=== PATIENT | female | born 1945 | race African-American/Black ===

== ENCOUNTER → 2017-05-31 | Outpatient (CLI) | payer MEDICARE, BC ==
[~2017-05-31] MED LIST: ACID REFLUX; ADULT LOW DOSE81 MG PO; ARAVA20 MG PO; BENTYL20 MG PO; BETAGAN 2 ML2 ML OP; BUPROPION HCL100 MG PO; BUPROPION HCL75 MG PO; CALCIUM 600 PLU1 TAB PO; CALCIUM CARBON600 MG PO; CALCIUM CARBONA1 TAB PO; CARVEDILOL3.125 MG PO; CELLCEPT250 MG PO; CIPRO 500MG TA500 MG PO; COLESTIPOL1 GM PO; COSOPT 2%-0.5%10 ML OP; CYCLOBENZAPRINE5 MG PO; DEPAKOTE 500MG500 MG PO; DEPAKOTE ER500 MG PO; DIAZEPAM5 MG PO; DIGOXIN0.125 MG PO; DILAUDID2 MG PO; DONEPEZIL 10MG10 MG PO; HCTZ/LISINOPRIL1 TAB PO; HYDROCHLOROTHIA25 M1 PO; HYDROCODONE 7.51 TAB PO; HYGROTON GENERI25 MG PO; IMURAN50 MG PO; KLOR-CON M2020 MEQ PO; LASIX; LEFLUNOMIDE20 MG PO; LOMOTIL 2.5MG.2.5 MG PO; LORATADINE 10MG10 M1 PO; LORTAB 5/500 501 TAB PO; MACROBID100 M3 PO; MAG-OX 400MG T400 MG PO; MED FOR TREMORS; MEDROL 4MG. DOSE4 MG PO; METRONIDAZOLE500 MG PO; MONODOX100 MG PO; MYSOLINE50 MG OR; Meclizine25 MG PO; OMEPRAZOLE20 MG PO; OXYBUTYNIN5 MG PO; PERCOCET 325 MG1 TA3 PO; POTASSIUM CHLO20 ME2 PO; PREDNICOT20 MG PO; PREDNISONE 2.52.5 MG PO; PREDNISONE 5MG.5 MG PO; PREDNISONE2.5 MG PO; PREMPRO 0.45 MG1 TAB PO; PROPRANOLOL HCL20 MG PO; PROTONIX 40MG T40 MG PO; PROTONIX40 MG PO; PYRIDIUM200 M2 PO; QUALITY CHOICE PO; SIMVASTATIN20 MG PO; TESSALON PERLE100 MG PO; TRAMADOL 50MG T50 MG PO; VICODIN 5/500 T1 TAB PO; WELLBUTRIN 150150 MG PO; WELLBUTRIN SR150 MG PO; XALATAN 0.2.5 ML/BOT OP; ZOFRAN4 MG PO; ZOLPIDEM 10MG T10 MG PO; [UNRECOGNIZED DRUG - OTHER] OP; [UNRECOGNIZED DRUG - OTHER] PO; [UNRECOGNIZED DRUG - REMARK]
[2017-05-31 15:32] LABS: HEMOGLOBIN 11.6 g/dL (12.2-16.2)
[2017-05-31 15:34] LABS: LYMPH % 32.3 % (10-50.0)
[2017-05-31 15:36] LABS: LYMPH # 1.3 K/mm3 (0.7-4.5)
[2017-05-31 15:38] LABS: URINE BILIRUBIN - DIPSTICK NEGATIVE (NEG); URINE BLOOD NEGATIVE (NEG)
[2017-05-31 17:17] LABS: BUN 11 mg/dL (7-18)
[2017-05-31 18:06] LABS: GFR (ESTIMATED) 55 ML/MIN (59-)
[2017-06-02 19:44] LABS: MISCELLANEOUS TEST HCV ANTIB.VERIFICAT.
== END ==
LOC: LAB 14:38
PROVIDERS: Internal Medicine Rheumatology
DX: M32.9 Systemic lupus erythematosus, unspecified (principal); R53.83 Other fatigue; Z79.899 Other long term (current) drug therapy

== ENCOUNTER 2017-06-26 11:03 | Day surgery (SDC) | payer MEDICARE, BC ==
[~2017-06-26] VITALS: Ht 162.6 cm; Wt 72.6 kg
--- NOTE | 2017-06-26 13:21 | Operative Note ---
Upper GI Endoscopy Procedure date: 06/26/17 Date of : 49 Procedure:Upper GI Endoscopy The esophagogastric duodenoscopy with cold biopsies and TTS balloon dilation Indications: Mrs. Reilly is a 71-year-old female who has had dyspepsia with esophageal spasm in the past. She has been developing more fullness, food regurgitation, reflux and dysphagia. She had an EGD with me in September 2016 that showed linear gastritis and small hiatal hernia. The patient is here for repeat evaluation as well as screening colonoscopy. She has had pancreatitis in the past. The patient does take CellCept for lupus. Performing Provider: Zakiya Cartagena MD Referring Provider: Sterling Penn M.D. Sedation: MAC sedation Procedure: Prior to the procedure, a history and physical exam was performed, and patients medications and allergies were reviewed. The risks and benefits of the procedure and the sedation options and risks were discussed with the patient. All questions were answered and informed consent was obtained. The patient was brought to the procedure room. Patient identification and proposed procedure were verified by the physician and the nurse. The patient was placed in a left lateral decubitus position and the scope was passed under direct vision. Throughout the procedure, the patient's blood pressure, pulse, and oxygen saturations were monitored continuously. The endoscope was introduced through the mouth, and advanced to the second part of duodenum. The upper GI endoscopy was accomplished without difficulty. The patient tolerated the procedure well. Findings: The scope was passed directly into the upper esophagus and advanced to the third portion of the duodenum. The post bulbar duodenum and duodenal bulb were normal with normal mucosa and conniventes. The scope was withdrawn through a normal duodenal bulb and pylorus into the stomach. There was linear erythema of the antrum and body of the stomach consistent with linear reactive gastritis. The remainder of the antrum, body and fundus of the stomach were grossly normal. Upon retroflexion there was a small 1-2 cm hiatal hernia. 2 biopsies were taken in the antrum and along the lesser curvature for histology. The scope was then withdrawn into the esophagus. There appeared to be a small island of Hancock's that was biopsied. There were tertiary contractions and evidence of moderate esophageal dysmotility. The entire esophagus was dilated to 60 Singaporean/20 mm with a TTS hydrostatic balloon. There was fracturing of a proximal esophageal web. There was some increased cricopharyngeal resting tone. Immediate complications: None EBL (ml): 0 Impression: 1. Nonerosive gastroesophageal reflux disease with mild esophageal dysmotility and cricopharyngeal spasm status post dilation to 20 mm 2. 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 Small sliding hiatal hernia 4. Bile reflux with mild linear reactive gastritis Recommendations: I am going to recommend promotility therapy and treatment for visceral sensitivity and accommodation. I will proceed with screening colonoscopy. I will follow-up the biopsies. at 1321
--- NOTE | 2017-06-26 13:38 | Operative Note ---
Colonoscopy ([facility]) Procedure date: 06/26/17 Date of : 49 Procedure:Colonoscopy Colonoscopy Indications: Mrs. Reilly is a 71-year-old female who is here for screening colonoscopy. I believe that she had a colonoscopy with Dr. Marybeth Feliz within the last 3-5 years. The patient has a history of dyspepsia. She has had some nausea and fullness. The patient had a normal ultrasound of the gallbladder and HIDA scan. The patient reports no rectal bleeding or family history of colon cancer. Performing Provider: Zakiya Cartagena MD Referrring Provider: Sterling Penn M.D. Sedation: MAC sedation Procedure: Prior to the procedure, a history and physical exam was performed, and patient medications and allergies were reviewed. The risks and benefits of the procedure and the sedation options and risks were discussed with the patient. All questions were answered and informed consent was obtained. Patient identification and proposed procedure were verified by the physician and the nurse. The patient was placed in a left lateral decubitus position. Throughout the procedure, the patient's blood pressure, pulse, and oxygen saturations were monitored continuously. Findings: On digital rectal examination there was normal rectal tone. There were no external hemorrhoids. The colonoscope was introduced through the anal canal to the rectum and advanced to the cecum. The ileocecal valve and appendiceal orifice were identified. The scope was advanced a short distance into the ileum which appeared grossly normal. The scope was then withdrawn into the colon. The cecum, ascending, transverse, descending, sigmoid and rectum were grossly normal. There were no mucosal abnormalities identified. Upon retroflexion within the rectum there were grade 1 internal hemorrhoids. Impressions: 1. Normal colonoscopy with intubation of the terminal ileum Recommendations: The patient will not require screening/surveillance colonoscopy again for 10 years by ACS guidelines. I would encourage fiber supplementation on a long-term daily maintenance basis. Complications: None EBL (ml): 0 at [id number]
[2017-06-26 14:57] VITALS: BP 156/78
== END 2017-06-26 14:35 | disposition home or self-care (01) ==
LOC: SDC 11:03
PROVIDERS: Internal Medicine Gastroenterology
PROC: 0DB58ZX Excision of Esophagus, Via Natural or Artificial Opening Endoscopic, Diagnostic (ICD-10-PCS; 2017-06-26)
PROC: 0DB78ZX Excision of Stomach, Pylorus, Via Natural or Artificial Opening Endoscopic, Diagnostic (ICD-10-PCS; 2017-06-26)
PROC: 0DB68ZX Excision of Stomach, Via Natural or Artificial Opening Endoscopic, Diagnostic (ICD-10-PCS; 2017-06-26)
PROC: 0D758ZZ Dilation of Esophagus, Via Natural or Artificial Opening Endoscopic (ICD-10-PCS; 2017-06-26)
PROC: 0DJD8ZZ Inspection of Lower Intestinal Tract, Via Natural or Artificial Opening Endoscopic (ICD-10-PCS; principal; 2017-06-26 12:00)
DX: Z12.11 Encounter for screening for malignant neoplasm of colon (principal); K64.0 First degree hemorrhoids; K21.9 Gastro-esophageal reflux disease without esophagitis; K44.9 Diaphragmatic hernia without obstruction or gangrene; I11.0 Hypertensive heart disease with heart failure; I50.32 Chronic diastolic (congestive) heart failure; I25.10 Atherosclerotic heart disease of native coronary artery without angina pectoris; L93.0 Discoid lupus erythematosus; K22.4 Dyskinesia of esophagus; E78.5 Hyperlipidemia, unspecified; J39.2 Other diseases of pharynx; K29.60 Other gastritis without bleeding; R13.10 Dysphagia, unspecified; Z79.82 Long term (current) use of aspirin; Z79.51 Long term (current) use of inhaled steroids; Z79.899 Other long term (current) drug therapy; Z88.8 Allergy status to other drugs, medicaments and biological substances; Z87.891 Personal history of nicotine dependence; Z81.1 Family history of alcohol abuse and dependence; Z82.49 Family history of ischemic heart disease and other diseases of the circulatory system; Z82.61 Family history of arthritis; I73.9 Peripheral vascular disease, unspecified
CPT/HCPCS: 43239; 43249; G0121; C1726

== ENCOUNTER 2017-07-15 11:40 | Observation (INO) | payer MEDICARE, BC ==
[~2017-07-15] VITALS: Ht 165.1 cm; Wt 73.2 kg
[~2017-07-15 11:40] MED LIST changes: -CARVEDILOL3.125 MG PO; +CARVEDILOL6.25 MG PO
[2017-07-15 11:49] VITALS: BP 148/84
--- NOTE | 2017-07-15 12:16 | Emergency Room Report ---
History of Present Illness Time Seen by 1206 Presenting Problem in Triage Pt arrived:Walked Presenting Problem:PT C/O ABD PAIN WITH N/V. 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 N Clinical Suspician of Infection? N Mental Status: 1 - Regular (Normal Baseline) Sepsis Risk:Low Sepsis Risk Have you (or family members/close friends) recently traveled outside the [place]? N If Yes, where/when: Have you had exposure to infectious disease within the past month? N TB? Other? Specify: 71 years old -Lebanese female with multiple medical problems including recurrent pancreatitis. She underwent esophageal dilation 3 weeks ago and started on Reglan. She was nauseous 5 days ago with abdominal pain that resolved. The pain recurred since yesterday sharp upper abdominal with nausea. There is no vomiting or diarrhea no fever no chills. The pain progressively gotten worse and she was seen by her primary care physician career services assistant the ED this morning. She has no hematemesis no coffee-ground Marybeth's is no bleeding per rectum or melanotic stool. She denies having chest pain shortness of breath or palpitations. Source patient, RN notes reviewed, family Exam Limitations no limitations ALLERGIES Coded Allergies: prochlorperazine (Intermediate, HALLUCINATIONS 06/26/17) ibuprofen (PT HAS RENAL FAILURE 06/26/17) oxycodone (HALLUCINATIONS 06/26/17) Home Medications Reported Medications Primidone (Avpak Primidone) 250 MG PO BID Simvastatin 20 MG PO DAILY #30 Mycophenolate Mofetil (Cellcept) 500 MG PO QHS Mycophenolate Mofetil (Cellcept) 750 MG PO DAILY Latanoprost (Xalatan 0.005% Opth Soln) 1 DROP OP QHS DONEPEZIL HCL (Donepezil 10MG Tablet) 10 MG PO QHS POTASSIUM CHL (Potassium Chloride) 20 MEQ PO BID OXYBUTYNIN CHLORIDE (Oxybutynin 5MG Tab) 5 MG PO BID CALCIUM CARBONATE/VITAMIN D3 (Calcium 600 + Vit D3 Tablet) 1 TAB PO DAILY Bupropion Hcl (Bupropion 100MG) 100 MG PO BID Loratadine (Loratadine 10MG Tablet) 10 MG PO DAILY Pantoprazole Sodium (Protonix) 40 MG PO DAILY DORZOLAMIDE HCL/TIMOLOL (Dorzolamide-Timolol Eye Drops) 1 DROP OP BID Leflunomide 20 MG PO DAILY Carvedilol (Carvedilol 3.125MG) 3.125 MG PO BID Chlorthalidone (Chlorthalidone 25MG Tab) 25 MG PO DAILY Aspirin (Adult Low Dose Aspirin EC) 81 MG PO DAILY History Medical History General CAD? Yes Angina: No MS: No Hypertension? Yes Hyperlipidemia? Yes CHF? No DVT? Yes PE? No COPD? No Asthma? No Anemia? No GERD? Yes Gastric ulcers? No GI Bleed? No Hernia? No Thyroid Problems? Yes Hypothyroidism? No CVA? No Seizures? No Diabetes? No Insulin Dependent: No Insulin Pump: No Home FSBS? No Renal Insuffiency? Yes End Stage Renal Disease? No UTI? No Stones? No BPH? No GB Disease: No Nephritic Syndrome? No Asplenia? No Hepatitis? No Sickle Cell Disease? No Arthritis? Yes Migraines? Yes Cataracts? Yes Glaucoma? Yes MRSA? No HIV? No TB? No Anxiety? Yes Depression? Yes Cancer? No More? Yes Additional hx: PANCREATITIS Immunization Hx DT/Tetanus Unknown Flu 2015-FSN Pneumonia Never Had Surgical Hx Previous Surgery?Y BACK SURGERY X2 ROTATOR CUFF REPAIR X2 TUBAL LIGATION BIOPSY-UTERINE BREASTS BIOPSIES HEART CATH COLONOSCOPY 06/07/2012 LEFT LEG LASER SURGERY BACK SURGERY UPPER GI Family History Family Hx CAD Yes Hypertension Yes Social History Smoking Hx Smoker: Never Smoker Tobacco: No Alcohol Alcohol: No Review of Systems All Other Systems Reviewed and Negative Constitutional no symptoms reported Eyes no symptoms reported ENT no symptoms reported. Respiratory no symptoms reported Cardiovascular no symptoms reported Gastrointestinal see HPI, abdominal pain, nausea Genitourinary no symptoms reported. Musculoskeletal no symptoms reported Skin no symptoms reported Psychiatric/Neurological no symptoms reported Physical Exam Vital Signs Vital Signs Date Time Temp Pulse Resp B/P Pulse O2 O2 Flow FiO2 Ox Delivery Rate 07/15 1625 16 07/15 1519 16 07/15 1453 98.4 65 16 161/80 98 07/15 1318 70 16 181/84 98 07/15 1149 98.4 71 16 148/84 98 - WBC >12,000 or <4,000 or 10% bands? 2 or more SIRS Criteria Met? B/P:148/84 MAP:105 Creatinine >2.0? UA output<0.5ml/kg/hr for 2 hrs? Platelet count >100,000? Lactate >2.0mmol/1? INR >1.2 or PTT > than 60 sec? Evidence of Organ Dysfunction? Provider documented clinical suspician of infection? N Sepsis Criteria Count: 0 Sepsis Risk: Low Sepsis Risk General Appearance normal appearance, WD/WN Eye Exam - bilateral eye normal exam, bilateral eye PERRL, bilateral eye EOMI Ear, Nose, Throat hearing grossly normal, normal ENT inspection Neck normal inspection, non-tender, supple, full range of motion Respiratory Status Yes: trachea midline, chest symmetrical, non tender chest. No: respiratory distress. Lung Sounds bilateral: normal breath sounds, lungs clear. Cardiovascular normal exam, regular rate/rhythm, no peripheral edema, no gallop, no JVD, no murmur, no rub, normal peripheral pulses Peripheral Pulses Pulses normal Yes Gastrointestinal no organomegaly, tenderness, OBESE ABDOMEN SOFT WITH EPIGASTRIC TENDERNESS, NO CROSS OR REBOUND TENDERNESS, HYPERACTIVE BOWEL SOUND. nO PULSATING MASSES STRONG BILATERAL FEMORAL PULSES. Back normal inspection, no CVA tenderness, no vertebral tenderness Extremities non-tender, normal range of motion, normal inspection Neurologic alert, christian science healer II-XII nml as tested, normal exam, oriented x 3 Reflexes Reflexes normal Yes Mental status normal mood/affect Skin intact, normal color, warm/dry Lymphatic no adenopathy Medical Decision Making LABS/Meds/Orders Pt receiving controlled substance in ED? No Results/Orders Laboratory Tests 07/15/17 1325: Triglycerides Pending 07/15/17 1325: Sodium 136, Potassium 4.0, Chloride 101, Carbon Dioxide 25, BUN 14, Creatinine 1.1 H, Estimated Creat Clear 57, Estimated GFR (MDRD) 49 L, Glucose 106, Calcium 10.0, Total Bilirubin 0.2, AST 17, ALT 16, Alkaline Phosphatase 145 H, Troponin I < 0.02, Total Protein 8.1, Albumin 4.1, Globulin 4.0 H, Albumin/ Globulin Ratio 1.0 L, Amylase 122 H, Lipase 161 07/15/17 1315: WBC 5.6, RBC 5.25, Hgb 13.3, Hct 46.4, MCV 88.5, RDW 13.9, Plt Count 193, MPV 8.5, Gran % 72.0, Gran # 4.0, Lymphocytes % 19.5, Monocytes % 5.0, Eosinophils % 2.6, Basophils % 0.9, Lymphocytes # 1.1, Monocytes # 0.3, Eosinophils # 0.2, Basophils # 0.1, PUBS MCHC 28.7 L, MCH 25.4 L Current Medication Orders Sig/Silverio Start time Last Medication Dose Route Stop Time Status Admin Morphine Sulfate 2 MG ONCE ONE 07/15 1630 DCr 07/15 IV 07/15 1631 1625 Morphine Sulfate 0 .STK-MED ONE 07/15 162 DCr .ROUTE Morphine Sulfate 2 MG ONCE ONE 07/15 1530 DCr 07/15 IV 07/15 1531 1519 Morphine Sulfate 0 .STK-MED ONE 07/15 1521 DCr .ROUTE Diatrizoate Meglum/ 30 ML ONCE ONE 07/15 1515 UNV 07/15 Diatrizoate Sod PO 07/15 1516 1507 Sodium Chloride 10 ML ONCE ONE 07/15 1515 UNV 07/15 IV 07/15 1516 1507 Iopamidol 24 ML ONCE ONE 07/15 1500 UNV IV 07/15 1501 Diatrizoate Meglum/ 30 ML ONCE ONE 07/15 1230 DC 07/15 Diatrizoate Sod PO 07/15 1231 1317 Diatrizoate Meglum/ 0 .STK-MED ONE 07/15 1230 DC Diatrizoate Sod .ROUTE Famotidine 20 MG ONCE ONE 07/15 1230 CAN IV 07/15 1231 Morphine Sulfate 2 MG [id number] PRN 07/15 1230 CANr IV Sodium Chloride 8 ML ONCE ONE 07/15 1230 CAN IV 07/15 1231 Sodium Chloride 10 ML PRN PRN 07/15 1200 AC IV 07/16 1157 Orders Procedure Date/time Status DIET-NOTHING BY MOUTH 07/15 D Active ELECTROCARDIOGRAM REQUEST 07/15 1617 Active TRIGYLCERIDES 07/15 1617 Active 12 LEAD EKG-TRE (INITIAL) 07/[address] ABD & PELVIS W/O CONTRAST 07/[address] ABD/PELVIS REQ 07/15 1219 Complete IV SALINE LOCK 07/15 1157 Active TROPONIN I 07/15 1157 Complete LIPASE 07/15 1157 Complete CBC WITH AUTO DIFF 07/15 1157 Complete CHEM 12 PROFILE 07/15 1157 Complete AMYLASE 07/15 1157 Complete CM/EKG 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 EKG rate, NSR, rhythm Comments Normal sinus rhythm 75/m biphasic P wave upslope T ST segment in V2 T-wave inversions in V4 5 and 6 XRAY/CT/US XRAY/CT/US CT abdomen, pelvis CT interpretation by discussed w/radiologist Time results known: 1621 CT Results normal/NAD Departure Departure Time of Disposition 1621 Disposition Still a Patient Clinical Impression Primary Impression: Pancreatitis, acute Secondary Impressions: CAD (coronary artery disease), Esophagitis Condition STABLE Referrals Fili WONG,A.C. (Family) Additional Instructions I discussed with Dr cardenas and gabbi to admit for IVF , protonix drip , lactic acid, and no more morphine. Discharge Counseling Counseled pt/family regarding diagnosis, medications/RX, home care, follow up needs ED Critical Care Critical Care No If Critical Care minutes are documented, the time involved in the performance of seperately reportable procedures was not counted toward critical care time documented. I directly delivered medical care to this critically ill and/or injured patient. Timely evaluation and treatment was necessary to address the significant organ system(s) dysfunction present in this patient. at 1641
--- OUTSIDE RECORDS SUMMARY | 2017-07-15 12:20 | External Medical Summary Rpt | CCD ---
Author Author [facility] Organization [facility] Address Unknown Phone Unavailable Purpose Continuity of Care Document - through 2016
--- OUTSIDE RECORDS SUMMARY | 2017-07-15 12:20 | External Medical Summary Rpt | CCD ---
Demographics Preferred Language Lithuanian Marital Status Unknown Hinduism Affiliation Unknown Race Unknown Ethnic Group Unknown Author Author , TALIA MELGAR Address Unknown Phone Immunization No patient found.
--- OUTSIDE RECORDS SUMMARY | 2017-07-15 12:20 | External Medical Summary Rpt | CCD ---
Author Author , TALIA MELGAR Address Unknown Phone [email or web address] Care Team Providers Care Systems Specialist Name Role Phone Shashank Murdock MD, Unavailable Unavailable Shashank Murdock MD Purpose Continuity of Care Document - 07-28-2013 through 2016 Problems Code Diagnosis DOS Provider Status 780.60 780.60 [facility] D69.6 THROMBOCYTO PENIA, UNSPECIFIED E16.2 HYPOGLYCEMI A, UNSPECIFIED E933.1 E933.1 ADV [facility] TIC K29.70 GASTRITIS, UNSPECIFIED , WITHOUT BLEEDING K52.9 NONINFECTIV E GASTROENTER ITIS AND COLITIS, UNSPECIFIED K85.90 ACUTE PANCREATITI S WITHOUT NECROSIS OR INFECTION, UNSP M32.9 SYSTEMIC LUPUS ERYTHEMATOS US, UNSPECIFIED M48.06 SPINAL STENOSIS, LUMBAR REGION M53.3 SACROCOCCYG EAL DISORDERS, NOT ELSEWHERE CLASSIFIED M54.17 RADICULOPAT HY, LUMBOSACRAL REGION M54.5 LOW BACK PAIN N18.3 CHRONIC KIDNEY DISEASE, STAGE 3 (MODERATE) N30.90 CYSTITIS, UNSPECIFIED WITHOUT HEMATURIA R00.1 BRADYCARDIA , UNSPECIFIED R07.9 CHEST PAIN, UNSPECIFIED R10.9 UNSPECIFIED ABDOMINAL PAIN R53.83 OTHER FATIGUE R55 SYNCOPE AND COLLAPSE R92.8 OTH ABN AND INCONCLUSIV E FINDINGS ON DX IMAGING OF BREAST Allergies, Adverse Reactions, Alerts Type Drug Allergy Adverse Reaction to Substance Substance Reaction Severity Ibuprofen PT HAS RENAL FAILURE Unknown Prochlorperazine HALLUCINATIONS Intermediate Oxycodone NA-HALLUCINATIONS Unknown Medications Na ND Rx Da Fi Fi Am Da Di Ph RX Ph St me C No te ll ll ou ys ag ar # ys at rm s nt no ma ic us Or Da si cy ia de te s n re d PA 11 0 No TI -2 EN 6- Lo T' 20 ng S 13 er OW N Ac HO ti ME ve ME DS PA 11 1 No TI -2 EN 5- Lo T' 20 ng S 13 er OW N Ac HO ti ME ve ME DS LE 25 11 0 No VO 02 -2 FL 10 4- Lo OX 13 20 ng AC 28 13 er IN 3 Ac 75 ti 0 ve MG /1 50 ML -D 5W SO 00 11 0 No DI 40 -2 UM 97 4- Lo 98 20 ng CH 30 13 er LO 9 RI Ac DE ti ve 0. 9% SO CORNELIA TI ON Sa 63 11 1 No li 80 -2 ne 70 4- Lo 10 20 ng Fl 07 13 er us 5 h Ac 10 ti ML ve Sy ri ng e Sa 63 11 1 No li 80 -2 ne 70 4- Lo 10 20 ng Fl 07 13 er us 5 h Ac 10 ti ML ve Sy ri ng e TY 50 11 0 No LE 58 -2 NO 00 4- Lo L 45 20 ng EX 10 13 er -S 3 TR Ac ti 50 ve [address] ET ON 00 11 2 No DA 64 -2 NS 16 4- Lo ET 08 20 ng RO 02 13 er N 5 HC Ac L ti 4 ve MG /2 ML AL LI 00 11 0 No DO 40 -2 CA 94 4- Lo IN 27 20 ng E 60 13 er HC 1 L Ac 1% ti ve AL TU 00 11 2 No MS 13 -2 50 4- Lo TA 07 20 ng BL 02 13 er ET 7 Ac CH ti EW ve AB LE PA 11 2 No TI -2 EN 4- Lo T' 20 ng S 13 er OW N Ac HO ti ME ve ME DS LO 00 11 2 No VE 07 -2 NO 50 4- Lo X 62 20 ng 40 04 13 er 1 MG Ac /0 ti .4 ve ML SY RI NG E LA 24 11 1 No TA 20 -2 NO 80 4- Lo NM 46 20 ng OS 32 13 er T 5 0. Ac 00 ti 5% ve EY E DR STEWARD S Vital Signs 07-30-2013 16:15 Name Value Interpretat Reference Comment ion Range Body 98.6 [degF] Temperature BP 52 mm[Hg] Diastolic BP Systolic 94 mm[Hg] Heart 92 /min Rate/Pulse Respiratory 18 /min Rate 07-30-2013 08:00 Name Value Interpretat Reference Comment ion Range O2% 99 % 07-28-2013 15:46 Name Value Interpretat Reference Comment ion Range Height 162.56 cm Weight 59.194 kg Measured 07-28-2013 03:22 Name Value Interpretat Reference Comment ion Range Body 100.2 Temperature [degF] BP 67 mm[Hg] Diastolic BP Systolic 132 mm[Hg] Heart 110 /min Rate/Pulse O2% 95 % Respiratory 16 /min Rate Weight 0 [oz_av] Measured Results Labs Lab Lab Date Result Refere Interp Status Commen Order Detail nces retati t Range on CBC with AUTO DIFF (07-30-2013 07:15) WBC # 11-26-2 5.4 4.8-10. complet Bld 013 K/MM3 8 ed Auto 07:15 RBC # 11-26-2 4.77 4.2-5.4 complet Bld 013 M/mm3 ed Auto 07:15 Hgb --2 12.8 12.2-16 complet Bld-mCn 013 g/dL .2 ed c 07:15 Hct Fr 07-30-2 39.2 % 37.0-47 complet Bld 013 .0 ed 07:15 MCV RBC 11-2 82.3 fl 82.2-97 complet 013 .8 ed 07:15 MCH RBC 07-30-2 26.9 pg 27-31.2 complet Qn 013 ed Auto 07:15 MEAN 11-26-2 32.8 31.8-35 complet CORPUSC 013 g/dl .4 ed ULAR 07:15 HGB CONC RDW RBC -26-2 15.8 % 11.5-17 complet Auto 013 .5 ed 07:15 Platele -26-2 138 142-424 complet t Bld 013 K/mm3 ed Ql 07:15 Manual MEAN 07-30-2 8.4 fl 7.4-10. complet PLATELE 013 4 ed T 07:15 VOLUME Granulo --2 66.2 % 37.0-80 complet cytes 013 .0 ed Fr Bld 07:15 Auto LYMPH % 11-26-2 27.6 % 10-50.0 complet 013 ed 07:15 Monocyt 11-26-2 3.1 % 1.7-9.3 complet es Fr 013 ed Bld 07:15 Auto Eosinop -26-2 2.9 % 0.1-12. complet hil Fr 013 0 ed Bld 07:15 Auto Basophi 11-26-2 0.3 % 0.1-2.0 complet ls Fr 013 ed Bld 07:15 Auto Granulo 07-30-2 3.6 1.8-7.8 complet cytes # 013 K/mm3 ed Bld 07:15 Auto Lymphoc 07-30-2 1.5 0.7-4.5 complet ytes Fr 013 K/mm3 ed Bld 07:15 Auto Monocyt 07-30-2 0.2 0.1-1.0 complet es # 013 K/mm3 ed Bld 07:15 Auto Eosinop 07-30-2 0.2 0.0-0.4 complet hil # 013 K/mm3 ed Bld 07:15 Auto Basophi 07-30-2 0.0 0-0.2 complet ls # 013 K/MM3 ed Bld 07:15 Auto BASIC METABOLIC PANEL (07-29-2013 06:55) Glucose 61 74-106 complet 013 mg/dL ed Bld-mCn 06:55 c BUN 15 7-18 complet Bld-mCn 013 mg/dL ed c 06:55 Creat 2 1.2 0.6-1.0 complet SerPl-m 013 mg/dL ed Cnc 06:55 Creat 44 50-200 complet Cl 013 ML/MIN ed predict 06:55 ed SerPl C-G-vRa te GFR/BSA 45 59- complet .pred 013 ML/MIN ed SerPl 06:55 Schwart z-vRate Sodium 139 136-145 complet SerPl-s 013 mmoL/L ed Cnc 06:55 Potassi 3.8 3.5-5.1 complet um 013 mmoL/L ed SerPl-s 06:55 Cnc Chlorid 107 98-107 complet e 013 mmoL/L ed SerPl-s 06:55 Cnc CO2 21 21.0-32 complet SerPl-s 013 mmoL/L .0 ed Cnc 06:55 Calcium 7.5 8.5-10. complet 013 mg/dL 1 ed SerPl-m 06:55 Cnc LIVER PROFILE (07-29-2013 06:55) Prot 07-29-2 6.0 6.4-8.2 complet SerPl-m 013 gm/dL ed Cnc 06:55 Albumin 11-25-2 2.4 3.4-5.0 complet 013 gm/dL ed SerPl-m 06:55 Cnc Bilirub 11-25-2 0.2 0.2-1.0 complet 013 mg/dL ed SerPl-m 06:55 Cnc Bilirub 11-25-2 0.11 0.0-0.2 complet Direct 013 mg/dL ed 06:55 SerPl-m Cnc Bilirub 11-25-2 0.09 0-0.9 complet 013 mg/dL ed Indirec 06:55 t SerPl-m Cnc AST 11-25-2 64 U/L 15-37 complet SerPl-c 013 ed Cnc 06:55 ALT 11-25-2 62 U/L 30-65 complet SerPl-c 013 ed Cnc 06:55 ALP 11-25-2 104 U/L 50-136 complet SerPl-c 013 ed Cnc 06:55 CBC with AUTO DIFF (07-29-2013 06:55) WBC # 11-25-2 5.1 4.8-10. complet Bld 013 K/MM3 8 ed Auto 06:55 RBC # 11-25-2 4.31 4.2-5.4 complet Bld 013 M/mm3 ed Auto 06:55 Hgb 11-25-2 11.7 12.2-16 complet Bld-mCn 013 g/dL .2 ed c 06:55 Hct Fr 11-25-2 36.7 % 37.0-47 complet Bld 013 .0 ed 06:55 MCV RBC 11-25-2 85.1 fl 82.2-97 complet 013 .8 ed 06:55 MCH RBC 11-25-2 27.1 pg 27-31.2 complet Qn 013 ed Auto 06:55 MEAN 11-25-2 31.8 31.8-35 complet CORPUSC 013 g/dl .4 ed ULAR 06:55 HGB CONC RDW RBC 11-25-2 15.7 % 11.5-17 complet Auto 013 .5 ed 06:55 Platele 11-25-2 117 142-424 complet t Bld 013 K/mm3 ed Ql 06:55 Manual MEAN 11-25-2 9.6 fl 7.4-10. complet PLATELE 013 4 ed T 06:55 VOLUME Granulo 11-25-2 47.2 % 37.0-80 complet cytes 013 .0 ed Fr Bld 06:55 Auto LYMPH % 11-25-2 40.5 % 10-50.0 complet 013 ed 06:55 Monocyt 11-25-2 5.7 % 1.7-9.3 complet es Fr 013 ed Bld 06:55 Auto Eosinop 11-25-2 6.2 % 0.1-12. complet hil Fr 013 0 ed Bld 06:55 Auto Basophi 11-25-2 0.3 % 0.1-2.0 complet ls Fr 013 ed Bld 06:55 Auto Granulo 11-25-2 2.4 1.8-7.8 complet cytes # 013 K/mm3 ed Bld 06:55 Auto Lymphoc 11-25-2 2.1 0.7-4.5 complet ytes Fr 013 K/mm3 ed Bld 06:55 Auto Monocyt 11-25-2 0.3 0.1-1.0 complet es # 013 K/mm3 ed Bld 06:55 Auto Eosinop 11-25-2 0.3 0.0-0.4 complet hil # 013 K/mm3 ed Bld 06:55 Auto Basophi 11-25-2 0.0 0-0.2 complet ls # 013 K/MM3 ed Bld 06:55 Auto CSF CELL COUNT/DIFF (07-28-2013 08:17) Color -24-2 COLORLE complet CSF 013 SS ed 08:17 Appeara 24-2 CLEAR complet nce CSF 013 ed 08:17 WBC # 11-24-2 0 /mm3 0-5 complet CSF 013 ed Manual 08:17 RBC # 11-24-2 0 /mm3 complet CSF 013 ed 08:17 Glucose CSF-mCnc (07-28-2013 08:17) Glucose 07-28-2 71 40-70 complet 013 mg/dL ed CSF-mCn 08:17 c Prot CSF Ql (07-28-2013 08:17) Prot 11-24-2 47.8 15-45 complet CSF Ql 013 mg/dL ed 08:17 COMPREHENSIVE METABOLIC PANEL (07-28-2013 05:15) Glucose 07-28-2 80 74-106 complet 013 mg/dL ed Bld-mCn 05:15 c BUN 23 7-18 complet Bld-mCn 013 mg/dL ed c 05:15 Creat 1.3 0.6-1.0 complet SerPl-m 013 mg/dL ed Cnc 05:15 Creat 43 50-200 complet Cl 013 ML/MIN ed predict 05:15 ed SerPl C-G-vRa te GFR/BSA 41 59- complet .pred 013 ML/MIN ed SerPl 05:15 Schwart z-vRate Sodium 140 136-145 complet SerPl-s 013 mmoL/L ed Cnc 05:15 Potassi 3.8 3.5-5.1 complet um 013 mmoL/L ed SerPl-s 05:15 Cnc Chlorid 103 98-107 complet e 013 mmoL/L ed SerPl-s 05:15 Cnc CO2 23 21.0-32 complet SerPl-s 013 mmoL/L .0 ed Cnc 05:15 Calcium 8.8 8.5-10. complet 013 mg/dL 1 ed SerPl-m 05:15 Cnc Prot 6.8 6.4-8.2 complet SerPl-m 013 gm/dL ed Cnc 05:15 Albumin 3.2 3.4-5.0 complet 013 gm/dL ed SerPl-m 05:15 Cnc Globuli 3.6 1.3-3.2 complet n 013 gm/dL ed Ser-mCn 05:15 c Albumin 0.9 UNK 1.1-1.8 complet /Glob 013 ed SerPl-m 05:15 Rto Bilirub 2 0.2 0.2-1.0 complet 013 mg/dL ed SerPl-m 05:15 Cnc AST 79 U/L 15-37 complet SerPl-c 013 ed Cnc 05:15 ALT 65 U/L 30-65 complet SerPl-c 013 ed Cnc 05:15 ALP 123 U/L 50-136 complet SerPl-c 013 ed Cnc 05:15 Digoxin SerPl-mCnc (07-28-2013 05:15) Digoxin 11-24-2 0.63 1.15-2. complet 013 ng/mL 56 ed SerPl-m 05:15 Cnc CBC with AUTO DIFF (07-28-2013 05:15) WBC # 11-24-2 6.7 4.8-10. complet Bld 013 K/MM3 8 ed Auto 05:15 RBC # 11-24-2 4.99 4.2-5.4 complet Bld 013 M/mm3 ed Auto 05:15 Hgb 1124-2 13.7 12.2-16 complet Bld-mCn 013 g/dL .2 ed c 05:15 Hct Fr 24-2 42.3 % 37.0-47 complet Bld 013 .0 ed 05:15 MCV RBC 24-2 84.6 fl 82.2-97 complet 013 .8 ed 05:15 MCH RBC 24-2 27.5 pg 27-31.2 complet Qn 013 ed Auto 05:15 MEAN 24-2 32.5 31.8-35 complet CORPUSC 013 g/dl .4 ed ULAR 05:15 HGB CONC RDW RBC 24-2 15.9 % 11.5-17 complet Auto 013 .5 ed 05:15 Platele -24-2 114 142-424 complet t Bld 013 K/mm3 ed Ql 05:15 Manual MEAN 24-2 8.7 fl 7.4-10. complet PLATELE 013 4 ed T 05:15 VOLUME Granulo 24-2 76.9 % 37.0-80 complet cytes 013 .0 ed Fr Bld 05:15 Auto LYMPH % -24-2 12.8 % 10-50.0 complet 013 ed 05:15 Monocyt 11-24-2 6.8 % 1.7-9.3 complet es Fr 013 ed Bld 05:15 Auto Eosinop 11-24-2 3.4 % 0.1-12. complet hil Fr 013 0 ed Bld 05:15 Auto Basophi 11-24-2 0.1 % 0.1-2.0 complet ls Fr 013 ed Bld 05:15 Auto Granulo 11-24-2 5.2 1.8-7.8 complet cytes # 013 K/mm3 ed Bld 05:15 Auto Lymphoc 11-24-2 0.9 0.7-4.5 complet ytes Fr 013 K/mm3 ed Bld 05:15 Auto Monocyt 11-24-2 0.5 0.1-1.0 complet es # 013 K/mm3 ed Bld 05:15 Auto Eosinop 11-24-2 0.2 0.0-0.4 complet hil # 013 K/mm3 ed Bld 05:15 Auto Basophi 11-24-2 0.0 0-0.2 complet ls # 013 K/MM3 ed Bld 05:15 Auto URINALYSIS/COMPLETE (07-28-2013 05:10) URINE 11-24-2 YELLOW YELLOW complet COLOR 013 ed 05:10 URINE 11-24-2 CLEAR CLEAR complet APPEARA 013 ed NCE 05:10 URINE 11-24-2 NEGATIV NEG complet GLUCOSE 013 E ed - 05:10 DIPSTIC K URINE 11-24-2 NEGATIV NEG complet BILIRUB 013 E ed IN - 05:10 DIPSTIC K URINE 11-24-2 NEGATIV NEG complet KETONE 013 E mg/dL ed 05:10 URINE 11-24-2 1.020 1.005-1 complet SPECIFI 013 UNK .030 ed C 05:10 GRAVITY URINE 11-24-2 TRACE-I NEG complet BLOOD 013 NTACT ed 05:10 URINE 11-24-2 7.0 UNK 5.0-8.5 complet PH 013 ed 05:10 URINE 11-24-2 NEGATIV NEG complet PROTEIN 013 E mg/dL ed - 05:10 DIPSTIC K URINE 11-24-2 0.2 NEG complet UROBILI 013 E.U./dL ed NOGEN - 05:10 DIPSTIC K URINE 11-24-2 NEGATIV NEG complet NITRATE 013 E ed - 05:10 DIPSTIC K URINE 11-24-2 NEGATIV NEG complet LEUK 013 E ed ESTERAS 05:10 E URINE 11-24-2 3-5 0 complet RBC 013 rbc/hpf ed 05:10 URINE 11-24-2 3-5 O complet WBC 013 wbc/hpf ed 05:10 URINE 11-24-2 3-5 0-5 complet SQUAMOU 013 #/hpf ed S CELLS 05:10 URINE 11-24-2 TRACE NONE complet AMORPH 013 ed SEDIMEN 05:10 T Encounters Encounter Start End Date Code Location Performer Type Date Inpatient [facility] Agustin Murdock MD ([place]) 3 03:30 3 16:15 [facility]
--- OUTSIDE RECORDS SUMMARY | 2017-07-15 12:20 | External Medical Summary Rpt | CCD ---
Author Author , TALIA MELGAR Address Unknown Phone [email or web address] Care Team Providers Care Tax Compliance Representative Name Role Phone Shashank Murdock MD, Unavailable Unavailable Shashank Murdock MD Purpose Continuity of Care Document - 07-28-2013 through 2016 Problems Code Diagnosis DOS Provider Status 780.60 780.60 [facility] D69.6 THROMBOCYTO PENIA, UNSPECIFIED E16.2 HYPOGLYCEMI A, UNSPECIFIED E933.1 E933.1 ADV [facility] TIC K29.70 GASTRITIS, UNSPECIFIED , WITHOUT [...] TA 20 -2 NO 80 4- Lo SD 46 20 ng OS 32 13 er [...] Date Code Location Performer Type Date Inpatient [facility] Agustin Murdock MD ([place]) 3 03:30 3 16:15 [facility]
--- OUTSIDE RECORDS SUMMARY | 2017-07-15 12:20 | External Medical Summary Rpt | CCD ---
Demographics Preferred Language Comoran Marital Status Unknown Pentecostalism Affiliation Unknown Race Unknown Ethnic Group Unknown Author Author , TALIA MELGAR Address Unknown Phone Immunization No patient found.
[2017-07-15 13:07] LABS: HEMOGLOBIN 13.3 g/dL (12.2-16.2); LYMPH # 1.1 K/mm3 (0.7-4.5); LYMPH % 19.5 % (10-50.0)
[2017-07-15 13:48] LABS: BUN 14 mg/dL (7-18)
[2017-07-15 13:51] LABS: GFR (ESTIMATED) 49 ML/MIN (59-)
--- OUTSIDE RECORDS SUMMARY | 2017-07-15 16:46 | External Medical Summary Rpt | CCD ---
Demographics Preferred Language Bulgarian Marital Status Unknown Holiness Affiliation Unknown Race Unknown Ethnic Group Unknown Author Author , TALIA MELGAR Address Unknown Phone Immunization No patient found.
--- OUTSIDE RECORDS SUMMARY | 2017-07-15 16:46 | External Medical Summary Rpt | CCD ---
Demographics Preferred Language Sammarinese Marital Status Unknown Anabaptist Affiliation Unknown Race Unknown Ethnic Group Unknown Author Author , TALIA MELGAR Address Unknown Phone Immunization No patient found.
--- OUTSIDE RECORDS SUMMARY | 2017-07-15 16:46 | External Medical Summary Rpt | CCD ---
Author Author , TALIA MELGAR Address Unknown Phone [email or web address] Care Team Providers Care Ship Fastener Name Role Phone Shashank Murdock MD, Unavailable Unavailable Shashank Murdock MD Purpose Continuity of Care Document - 07-28-2013 through 2016 Problems Code Diagnosis DOS Provider Status 780.60 780.60 [facility] D69.6 THROMBOCYTO PENIA, UNSPECIFIED E16.2 HYPOGLYCEMI A, UNSPECIFIED E933.1 E933.1 ADV [facility] TIC K29.70 GASTRITIS, UNSPECIFIED , WITHOUT BLEEDING [...] TA 20 -2 NO 80 4- Lo OK 46 20 ng OS 32 13 er [...] Date Code Location Performer Type Date Inpatient [facility] Agustin Murdock MD ([place]) 3 03:30 3 16:15 [facility]
--- OUTSIDE RECORDS SUMMARY | 2017-07-15 16:46 | External Medical Summary Rpt | CCD ---
Author Author , TALIA MELGAR Address Unknown Phone [email or web address] Care Team Providers Care Center Human Resources Manager Name Role Phone Shashank Murdock MD, Unavailable Unavailable Shashank Murdock MD Purpose Continuity of Care Document - 07-28-2013 through 2016 Problems Code Diagnosis DOS Provider Status 780.60 780.60 [facility] D69.6 THROMBOCYTO PENIA, UNSPECIFIED E16.2 HYPOGLYCEMI A, UNSPECIFIED E933.1 E933.1 ADV [facility] TIC K29.70 GASTRITIS, UNSPECIFIED , WITHOUT [...] TA 20 -2 NO 80 4- Lo MO 46 20 ng OS 32 13 er [...] Date Code Location Performer Type Date Inpatient [facility] Agustin Murdock MD ([place] 3 03:30 3 16:15 [facility]
[2017-07-15 18:26] VITALS: BP 137/55
[2017-07-15 18:47] VITALS: BP 137/55
[2017-07-15 19:58] VITALS: BP 131/66
[2017-07-15 20:00] VITALS: BP 131/66
--- NOTE | 2017-07-15 20:03 | HISTORY AND PHYSICAL REPORT ---
Demographics: Admit date: 07/15/17 Chief complaint: Abdominal pain PRIMARY DIAGNOSIS: ACUTE PANCREATITIS Allergies: Coded Allergies: prochlorperazine (Intermediate, HALLUCINATIONS 06/26/17) ibuprofen (PT HAS RENAL FAILURE 06/26/17) oxycodone (HALLUCINATIONS 06/26/17) History of present illness: History of present illness: 71-year-old black female with long history of lupus, managed by rheumatology in [place], Dr. Ayesha Adames, and on oral immunosuppressives with CellCept. Has had multiple episodes of pancreatitis and one week ago began to have epigastric abdominal pain with nausea without vomiting that felt to her like pancreatitis. 3 weeks ago she had esophageal dilatation because of esophageal dysmotility problems and she states since that time she's had some ongoing abdominal pain but it accelerated over the past week. She denies diarrhea, vomiting or blood in her stool. Came to the emergency department today after seeing nurse practitioner in her primary care physician's office, who was concerned about pancreatitis and recommended ER evaluation. ER evaluation showed reportedly normal CT scan of abdomen, and essentially normal labs except for a very minimally elevated lipase level. However, several medicines given in the emergency department failed to improve her abdominal pain and she is admitted to hospital for fluid support, pain control and further diagnostic testing as needed. Past medical history: Family HX CAD Yes Hypertension Yes Immunization HX DT/Tetanus Unknown Flu 2017-18FSN Pneumonia Never Had TB Test in last year No General CAD? Yes Angina: No SC: No Hypertension? Yes Hyperlipidemia? Yes CHF? No DVT? Yes PE? No COPD? No Asthma? No Anemia? No GERD? Yes Gastric ulcers? No GI Bleed? No Hernia? No Thyroid Problems? Yes Hypothyroidism? No CVA? No Seizures? No Diabetes? No Insulin Dependent: No Insulin Pump: No Home FSBS? No Renal Insuffiency? Yes UTI? No Stones? No BPH? No GB Disease: No Nephritic Syndrome? No Asplenia? No Hepatitis? No Sickle Cell Disease? No Arthritis? Yes Migraines? Yes Cataracts? Yes Glaucoma? Yes MRSA? No HIV? No TB? No Anxiety? Yes Depression? Yes Cancer? No More? Yes Additional hx: PANCREATITIS Past Surgical HX Previous Surgery?Y BACK SURGERY X2 ROTATOR CUFF REPAIR X2 TUBAL LIGATION BIOPSY-UTERINE BREASTS BIOPSIES HEART CATH COLONOSCOPY 06/07/2012 LEFT LEG LASER SURGERY BACK SURGERY UPPER GI Current home meds: Reported Medications Simvastatin 20 MG PO DAILY #30 Mycophenolate Mofetil (Cellcept) 500 MG PO QHS Mycophenolate Mofetil (Cellcept) 750 MG PO DAILY Latanoprost (Xalatan 0.005% Opth Soln) 1 DROP OP QHS DONEPEZIL HCL (Donepezil 10MG Tablet) 10 MG PO DAILY POTASSIUM CHL (Potassium Chloride) 20 MEQ PO BID Primidone (Avpak Primidone) (Unknown Dose) PO QHS OXYBUTYNIN CHLORIDE (Oxybutynin 5MG Tab) 5 MG PO BID CALCIUM CARBONATE/VITAMIN D3 (Calcium 600 + Vit D3 Tablet) 1 TAB PO DAILY Carvedilol (Carvedilol 6.25MG) 6.25 MG PO BID Bupropion Hcl (Bupropion 100MG) 100 MG PO BID Loratadine (Loratadine 10MG Tablet) 10 MG PO DAILY Pantoprazole Sodium (Protonix) 40 MG PO DAILY DORZOLAMIDE HCL/TIMOLOL (Dorzolamide-Timolol Eye Drops) 1 DROP OP BID Leflunomide 20 MG PO DAILY Chlorthalidone (Chlorthalidone 25MG Tab) 25 MG PO DAILY Aspirin (Adult Low Dose Aspirin EC) 81 MG PO DAILY Social Hx: Smoking HX Tobacco No Are you/the child exposed to second-hand smoke: No Alcohol Alcohol: No Hx of Drug Use Drug Use? No Patien't marital status is Patient's support system is excellent Review of systems: Constitutional malaise, weakness. No: diaphoresis, fever. Respiratory No: no symptoms reported. Cardiovascular No no symptoms reported Gastrointestinal/Abdominal see HPI Genitourinary No: no symptoms reported. Musculoskeletal joint pain (recent steroid injections), joint swelling. Neurological Yes: weakness, parasthesia. No: numbness, tingling, tremors. Exam: Lab data for last 24 hours: Laboratory Tests 07/15/17 1325: Triglycerides 63 07/15/17 1325: Sodium 136, Potassium 4.0, Chloride 101, Carbon Dioxide 25, BUN 14, Creatinine 1.1 H, Estimated Creat Clear 57, Estimated GFR (MDRD) 49 L, Glucose 106, Calcium 10.0, Total Bilirubin 0.2, AST 17, ALT 16, Alkaline Phosphatase 145 H, Troponin I < 0.02, Total Protein 8.1, Albumin 4.1, Globulin 4.0 H, Albumin/ Globulin Ratio 1.0 L, Amylase 122 H, Lipase 161 07/15/17 1315: WBC 5.6, RBC 5.25, Hgb 13.3, Hct 46.4, MCV 88.5, RDW 13.9, Plt Count 193, MPV 8.5, Gran % 72.0, Gran # 4.0, Lymphocytes % 19.5, Monocytes % 5.0, Eosinophils % 2.6, Basophils % 0.9, Lymphocytes # 1.1, Monocytes # 0.3, Eosinophils # 0.2, Basophils # 0.1, PUBS MCHC 28.7 L, MCH 25.4 L Admission vital signs: 1ST Vital Signs Result Date Time Pulse Ox 98 07/15 1149 B/P 148/84 07/15 1149 Temp 98.4 07/15 1149 Pulse 71 07/15 1149 Resp 16 07/15 1149 O2 Delivery ROOM AIR 07/15 1826 Additional information: Pleasant, alert and oriented 5 black female who appears her stated age. Oropharynx clear. Lungs have good air movement, abdomen soft but tender in the epigastric area with radiation to the back. No rebound or guarding or peritoneal signs. Heart rate regular without murmurs. No skin lesions or rashes notable, IV in the RIGHT forearm placed in the emergency department has infiltrated with some tissue swelling in the forearm area. No rash or skin necrosis noted. She has1+ ankle edema bilaterally-she states this is her baseline. Move all extremities well, no facial nerve deficits noted. Plan: Problem List 1. Pancreatitis 2. Lupus Plan: Patient's pain and her history is consistent with pancreatitis. Pain control as written for. I'm concerned this might represent a lupus flare as she recently has tapered off prednisone from a rheumatology visit a couple of weeks ago. IV Solu-Medrol as ordered. Repeat labs tomorrow, consider abd ultrasound or repeat CT if she fails to improve. at 2003
--- NOTE | 2017-07-15 21:19 | RADIOLOGY REPORT PS360 ---
CT ABD PELVIS W/O CONTRAST CLINICAL INDICATION: Diarrhea, upper abdominal pain, epigastric pain, recent esophageal dilatation UPPER ABDOMINAL PAIN, ESOPHAGEAL DILATION 3 WKS AGO ORDERING PHYSICIAN: Shashank Murdock MD PATIENT AGE: 71 years COMPARISON: None TECHNIQUE: Axial images obtained with sagittal and coronal reformats. PROCEDURE: Oral Contrast: Gastroview IV Contrast: 24 mils Isovue-370. Patient complained of burning while IV contrast injecting therefore, this contrast was stopped. FINDINGS: The lower chest shows no acute finding. No evidence of pneumomediastinum in the lower chest. No evidence of pneumoperitoneum. Liver, gallbladder, spleen, adrenal glands, and pancreas have an unremarkable appearance. There is prominent bilateral extra renal pelves. UPJ stenosis cannot be excluded based on this exam. No intestinal obstruction or free air. No focal inflammatory change. No evidence of appendicitis or diverticulitis. There has been prior lumbar fusion from L2 to L5 with interpedicular screws and significant artifact. IMPRESSION: No acute intra-abdominal or pelvic findings. Bilateral prominence of the renal pelves. UPJ stenosis is a consideration. Lasix renogram may further evaluate if clinically warranted
[2017-07-16 04:15] VITALS: BP 111/58
[2017-07-16 06:56] LABS: HEMOGLOBIN 12.8 g/dL (12.2-16.2); LYMPH # 0.8 K/mm3 (0.7-4.5)
[2017-07-16 08:03] VITALS: BP 135/63
[2017-07-16 08:19] VITALS: BP 135/63
--- NOTE | 2017-07-16 08:28 | ACUTE CARE PROGRESS NOTE (QUA) ---
Progress Notes Subjective Date 07/16/17 Time 0827 Note Overall patient feels better this morning. Clear liquids were tolerated well, except for cranberry juice which caused some pain. Abdomen is soft, minimal tenderness in the epigastric area, no rebound, softer than yesterday. Lungs are clear. Patient is alert and pleasant. Objective Findings Last VS-Temp:97.6 B/P:135/63 Pulse:78 Resp:18 SaO2:95 ROOM AIR Last weight lbs:161 oz:7 K.228 Method:Bed Scales Assessment/Plan Problem List 1. Pancreatitis 2. Lupus Patient condition Improving Plan: continue current care, clinically consistent with mild pancreatitis although enzymes and imaging are negative. Continue clear liquids, continue steroids intravenously, would anticipate stopping these tomorrow. Check ultrasound tomorrow to look at gallbladder and pancreas from an medical appointment clerk 's perspective. This inpt stay is expected to cross 2 MNs from start of care Yes at 0828
--- NOTE | 2017-07-16 08:28 | ACUTE CARE PROGRESS NOTE (QUA) ---
Progress Notes Subjective Date 07/16/17 Time 0827 Note Overall patient feels better this morning. Clear liquids were tolerated well, except for cranberry juice which caused some pain. Abdomen is soft, minimal tenderness in the epigastric area, no rebound, softer than yesterday. Lungs are clear. Patient is alert and pleasant. Objective Findings Last VS-Temp:97.6 B/P:135/63 Pulse:78 Resp:18 SaO2:95 ROOM AIR Last weight lbs:161 oz:7 K.228 Method:Bed Scales Assessment/Plan Problem List 1. Pancreatitis 2. Lupus Patient condition Improving Plan: continue current care, clinically consistent with mild pancreatitis although enzymes and imaging are negative. Continue clear liquids, continue steroids intravenously, would anticipate stopping these tomorrow. 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 This inpt stay is expected to cross 2 MNs from start of care Yes at 0828
--- NOTE | 2017-07-16 08:50 | PHARMACY CLINIC NOTE ---
Patient Demographics Patient Demographics Admission date: 07/15/17 Date: 07/16/17 Time: 0849 Allergies Coded Allergies: prochlorperazine (Intermediate, HALLUCINATIONS 06/26/17) ibuprofen (PT HAS RENAL FAILURE 06/26/17) oxycodone (HALLUCINATIONS 06/26/17) HEIGHT- FT: 5 IN: 5.00 K.228 VTE General Information Labs: Laboratory Tests 07/16 07/15 0615 1315 Hematology Hgb (12.2 - 16.2 g/dL) 12.8 13.3 Hct (37.0 - 47.0 %) 42.8 46.4 Plt Count (142 - 424 K/mm3) 186 193 Disclaimer The following section includes nursing documentation that has been pulled in for pharmacy review. Patient's VTE score: 1 Patient's VTE Risk: VERY LOW RISK Clinical trial participant? No VTE prophylaxis [id number] VTE prophylaxis ordered? Yes Type of prophylaxis/treatment: LORENA at 0849
[2017-07-16 16:03] VITALS: BP 149/45
[2017-07-16 19:54] VITALS: BP 145/62
[2017-07-16 20:05] VITALS: BP 145/62
[2017-07-17 04:24] VITALS: BP 137/63
--- NOTE | 2017-07-17 07:15 | ACUTE CARE PROGRESS NOTE (QUA) ---
Progress Notes Subjective Date 07/17/17 Time 0714 Note Patient has no complaints this morning. She was tolerating a liquid diet. Nursing notes indicate patient has had no complaints of pain. His morning she tells me she still has some abdominal discomfort. She is scheduled for ultrasound. Vital signs reviewed. Lungs clear to auscultation. Heart has a regular rate and rhythm. Mild epigastric tenderness to palpation without rebound or guarding. No RIGHT upper quadrant tenderness. Bowel sounds are present. Ultrasound this morning. After ultrasound advanced full liquid diet. If patient tolerates full liquid she may be discharged later today Objective Findings Last VS-Temp:98.0 B/P:137/63 Pulse:80 Resp:16 SaO2:100 ROOM AIR Last weight lbs:161 oz:7 K.228 Method:Bed Scales Assessment/Plan Problem List 1. Pancreatitis 2. Lupus Patient condition Stable Plan: continue current care This inpt stay is expected to cross 2 MNs from start of care Yes at 0715
[2017-07-17 07:26] VITALS: BP 183/74
--- NOTE | 2017-07-17 10:34 | RADIOLOGY REPORT PS360 ---
US ABD(COMPLETE-MULTI ORGANS HISTORY: Pancreatitis, abdominal pain, upper abdominal pain Pancreatitis clinically, with negative enzymes ORDERING PHYSICIAN: Shashank Murdock MD PATIENT AGE: 71 years COMPARISON: CT scan of 07/15/2017 FINDINGS: PANCREAS:Unremarkable. No obvious mass or abnormal fluid collection. No ductal dilatation LIVER:No focal liver lesions demonstrated. Homogeneous echogenicity. No intrahepatic biliary ductal dilatation evident RIGHT KIDNEY:Unremarkable. Normal size and echogenicity. No hydronephrosis LEFT KIDNEY:Unremarkable. No hydronephrosis. Normal size and echogenicity. GALLBLADDER:No gallstones, gallbladder wall thickening, pericholecystic fluid, or biliary dilatation. There is a small amount sludge in the gallbladder. No shadowing stones. Common bile duct is normal at 4 mm AORTA:No evidence of aneurysmal dilatation. SPLEEN:Unremarkable. Normal size and echogenicity ASCITES:None demonstrated. IMPRESSION: Small amount of gallbladder sludge versus concentrated bile otherwise negative abdominal ultrasound
[2017-07-17 10:36] VITALS: BP 183/74
[2017-07-17 15:43] VITALS: BP 172/61
--- NOTE | 2017-07-17 17:21 | Discharge Summary ---
Demographics Admit date: 07/15/17 Discharge date: 07/17/17 Discharge diagnoses Problem List 1. Pancreatitis 2. Lupus History of present illness History of present illness 71-year-old black female with long history of lupus, managed by rheumatology in [place], Dr. Ayesha Adames, and on oral immunosuppressives with CellCept. Has had multiple episodes of pancreatitis and one week ago began to have epigastric abdominal pain with nausea without vomiting that felt to her like pancreatitis. 3 weeks ago she had esophageal dilatation because of esophageal dysmotility problems and she states since that time she's had some ongoing abdominal pain but it accelerated over the past week. She denies diarrhea, vomiting or blood in her stool. Came to the emergency department today after seeing nurse practitioner in her primary care physician's office, who was concerned about pancreatitis and recommended ER evaluation. ER evaluation showed reportedly normal CT scan of abdomen, and essentially normal labs except for a very minimally elevated lipase level. However, several medicines given in the emergency department failed to improve her abdominal pain and she is admitted to hospital for fluid support, pain control and further diagnostic testing as needed. Patient was admitted with a presumptive diagnosis of pancreatitis despite no significant laboratory abnormalities and normal CT scan. Patient has a history of bouts of pancreatitis a few years ago that were due to medications. Currently she takes CellCept for her lupus and abdominal pain and pancreatitis is a side effect of this. Patient undergone esophageal dilatation of approximately 3 weeks prior. She was admitted placed on proton pump inhibitors, IV fluids and liquid diet. Over the course of 48 hours patient improved and her abdominal pain resolved. On the patient underwent abdominal ultrasound which did not reveal any evidence of gallbladder disease. Patient was subsequently discharged home and will follow-up with Dr. Cartagena as instructed at her esophageal dilatation Medications Medications: Discharge meds are as noted. Follow up Follow up in office in: 3 WEEKS with: ZAKIYA CARTAGENA at 0990
[2017-07-17 17:49] VITALS: BP 172/61
== END 2017-07-17 17:55 | disposition home or self-care (01) ==
LOC: ER 11:40 → 2ND 16:43
PROVIDERS: Emergency Medicine; Internal Medicine Adolescent Medicine
DX: K85.90 Acute pancreatitis without necrosis or infection, unspecified (principal); M35.9 Systemic involvement of connective tissue, unspecified; E78.5 Hyperlipidemia, unspecified; I10 Essential (primary) hypertension; Z88.6 Allergy status to analgesic agent; Z88.5 Allergy status to narcotic agent; Z88.8 Allergy status to other drugs, medicaments and biological substances; Z82.49 Family history of ischemic heart disease and other diseases of the circulatory system; I25.10 Atherosclerotic heart disease of native coronary artery without angina pectoris; Z86.718 Personal history of other venous thrombosis and embolism; Z79.82 Long term (current) use of aspirin; Z79.899 Other long term (current) drug therapy
CPT/HCPCS: G0378

== ENCOUNTER → 2017-08-16 | Outpatient (CLI) | payer MEDICARE, BC ==
--- NOTE | 2017-08-16 16:34 | RADIOLOGY REPORT PS360 ---
KUB (SINGLE VIEW) HISTORY: R/O RETAINED PANCREATIC STENT ORDERING PHYSICIAN: ZAKIYA CORDERO PATIENT AGE: 71 years COMPARISON: CT scan of 08/09/2017 FINDINGS: Previously noted common bile duct stent is no longer apparent within the abdomen or pelvis. There has been prior fusion of L2 S1. IMPRESSION: Biliary stent no longer apparent
[2017-08-16 16:58] LABS: HEMOGLOBIN 12.4 g/dL (12.2-16.2); LYMPH # 1.7 K/mm3 (0.7-4.5); LYMPH % 46.1 % (10-50.0)
[2017-08-16 18:56] LABS: URINE BILIRUBIN - DIPSTICK NEGATIVE (NEG); URINE BLOOD NEGATIVE (NEG)
[2017-08-16 19:53] LABS: BUN 12 mg/dL (7-18); GFR (ESTIMATED) 55 ML/MIN (59-)
== END ==
LOC: RAD 16:12 → LAB 16:12
PROVIDERS: Nurse Practitioner Women's Health
DX: M32.9 Systemic lupus erythematosus, unspecified (principal); I73.00 Raynaud's syndrome without gangrene; M54.2 Cervicalgia; R53.83 Other fatigue; M48.00 Spinal stenosis, site unspecified; Z91.89 Other specified personal risk factors, not elsewhere classified